=== PATIENT | female | born 1980 | race Caucasian/White ===

== ENCOUNTER 2024-11-11 13:39 | Inpatient (IN) | payer BC, OTHER ==
[2024-11-11] MEDS: Ondansetron 4 MG/2 ML SDV IVPUSH PRN (14:29)
[2024-11-11] MEDS ORDERED: Dexamethasone 4 MG/ML SDV ONE (17:04)
[2024-11-11] MEDS ORDERED: Propofol 200 MG/20 ML SDV ONE (17:04)
[2024-11-11] MEDS ORDERED: Succinylcholine 200 MG/10 ML MDV ONE (17:04)
[2024-11-11] MEDS ORDERED: fentaNYL 250 MCG/5 ML SDV ONE ×2 (17:04→17:43)
[2024-11-11] MEDS ORDERED: Ondansetron 4 MG/2 ML SDV ONE (17:04)
[2024-11-11] MEDS ORDERED: Glycopyrrolate 0.2 MG/ML 5 ML MDV ONE (17:04)
[2024-11-11] MEDS: Bupivacaine 0.5%/EPINEPHrine 1:200,000 50 ML MDV ONE (17:50)
[2024-11-11] MEDS ORDERED: Lactated Ringers 1,000 ML ONE (18:19)
[2024-11-12 05:51] LABS: BASOPHILS ABSOLUTE AUTO 0.03 K/uL (0.00-0.10); BASOPHILS PERCENT AUTO 0.3 % (0.1-1.3); EOSINOPHILS PERCENT AUTO 0.1 % (0.0-5.4); IMMATURE GRAN ABSOLUTE AUTO 0.03 K/uL (0.00-0.23); IMMATURE GRAN PERCENT AUTO 0.3 % (0.0-0.7); LYMPHOCYTES ABSOLUTE AUTO 1.14 K/uL (0.8-3.3); LYMPHOCYTES PERCENT AUTO 10.7 % (11.4-47.7); MONOCYTES ABSOLUTE AUTO 0.81 K/uL (0.20-0.90); MONOCYTES PERCENT AUTO 7.6 % (3.3-12.6); NEUTROPHILS ABSOLUTE AUTO 8.64 K/uL (1.0-7.6); NEUTROPHILS PERCENT AUTO 81.0 % (40.0-78.1); PLATELET COUNT,PLT 242 K/uL (130-375); RED BLOOD CELL COUNT 3.33 M/uL (3.77-5.24); WHITE BLOOD CELL COUNT,WBC 10.7 K/uL (3.2-11.0)
[2024-11-12 06:12] LABS: BLOOD UREA NITROGEN,BUN 17.0 mg/dL (7-18); CARBON DIOXIDE,CO2 23.0 mmol/L (21-32); CHLORIDE,CL 109.0 mmol/L (100-108); CREATININE 0.8 mg/dL (0.6-1.0); EST CRCL DRUG DOSING (CG) 79.07 mL/min; ESTIMATED GFR 92.0 mL/min (>60); GLUCOSE RANDOM 114.0 mg/dL (74-106); POTASSIUM,K 3.4 mmol/L (3.6-5.2); SODIUM,NA 141.0 mmol/L (140-148)
[2024-11-12 06:13] LABS: EOSINOPHILS ABSOLUTE AUTO 0.01 K/uL (0.00-0.40)
[2024-11-12] MEDS ORDERED: Heparin Sodium 5,000 Units/ML Vial SUBCUT SCH (07:00)
[2024-11-12] MEDS: Heparin Sodium 5,000 Units/ML Vial SUBCUT SCH (09:08)
[2024-11-12] MEDS: Potassium Chloride 20 MEQ Tab.ER PO ONE (10:17)
[2024-11-12] MEDS: Piperacillin/Tazobactam/Dext 4.5 GM in Premix Bag 1 BAG IV SCH (10:18)
[2024-11-12] MEDS ORDERED: Non-Formulary Medication 1 Each (Cholecalciferol (Vitamin D3) [Vitamin D3] 2,000 UNIT Cap) PO SCH (11:30)
[2024-11-12] MEDS ORDERED: Non-Formulary Medication 1 Each (Levothyroxine Sodium [Synthroid] 75 MCG Tablet) PO SCH (11:30)
[2024-11-12] MEDS: Cholecalciferol (Vitamin D3) 25 MCG Tab PO SCH (13:20)
[2024-11-13] MEDS: Benzocaine/Cetylpyridinium/Menthol Lozenge MUCMEM PRN (03:50)
[2024-11-13 06:00] LABS: BASOPHILS PERCENT AUTO 0.5 % (0.1-1.3); EOSINOPHILS ABSOLUTE AUTO 0.17 K/uL (0.00-0.40); EOSINOPHILS PERCENT AUTO 4.2 % (0.0-5.4); IMMATURE GRAN PERCENT AUTO 0.2 % (0.0-0.7); LYMPHOCYTES ABSOLUTE AUTO 1.12 K/uL (0.8-3.3); LYMPHOCYTES PERCENT AUTO 27.8 % (11.4-47.7); MONOCYTES ABSOLUTE AUTO 0.10 K/uL (0.20-0.90); MONOCYTES PERCENT AUTO 2.5 % (3.3-12.6); NEUTROPHILS ABSOLUTE AUTO 2.61 K/uL (1.0-7.6); NEUTROPHILS PERCENT AUTO 64.8 % (40.0-78.1); PLATELET COUNT,PLT 179 K/uL (130-375); RED BLOOD CELL COUNT 3.12 M/uL (3.77-5.24); WHITE BLOOD CELL COUNT,WBC 4.0 K/uL (3.2-11.0)
[2024-11-13 06:01] LABS: BASOPHILS ABSOLUTE AUTO 0.02 K/uL (0.00-0.10); IMMATURE GRAN ABSOLUTE AUTO 0.01 K/uL (0.00-0.23)
[2024-11-13 06:22] LABS: BLOOD UREA NITROGEN,BUN 10.0 mg/dL (7-18); CARBON DIOXIDE,CO2 27.0 mmol/L (21-32); CHLORIDE,CL 110.0 mmol/L (100-108); CREATININE 0.7 mg/dL (0.6-1.0); EST CRCL DRUG DOSING (CG) 90.36 mL/min; ESTIMATED GFR 108.0 mL/min (>60); GLUCOSE RANDOM 90.0 mg/dL (74-106); PHOSPHORUS 2.3 mg/dL (2.5-4.9); POTASSIUM,K 3.6 mmol/L (3.6-5.2); SODIUM,NA 142.0 mmol/L (140-148)
[2024-11-13] MEDS ORDERED: BUPROPION 300 MG PO SCH (09:00)
[2024-11-13] MEDS: Calcium Carbonate/Vitamin D3 1500 MG-400 Units Tab PO SCH (09:20)
[2024-11-13] MEDS ORDERED: Phosphorus #1 250 MG Tab PO ONE (12:04)
[2024-11-13] MEDS: Phosphorus #1 250 MG Tab PO ONE (12:50)
[2024-11-15 01:05] LABS: PARATHYROID HORMONE,INTACT 110 pg/mL (15-65)
== END 2024-11-13 16:30 | disposition home or self-care (01) | DRG 223 ==
LOC: JP.MS 13:53
PROVIDERS: ADMIT Surgery; ATTEND Surgery
PROC: 0DS80ZZ Reposition Small Intestine, Open Approach (ICD-10-PCS; principal; 2024-11-11 16:45)
DX: K56.1 Intussusception (principal); E83.51 Hypocalcemia; E83.42 Hypomagnesemia; Z79.899 Other long term (current) drug therapy
CPT/HCPCS: 00840-QZ; 36415; 80048; 82306; 82330; 83735; 83970; 84100; 85025; 99231; 99232; A9270-GY; J0330; J0612; J0690; J1100; J1171; J1596; J1644; J2405; J2543; J2550; J2704; J2710; J3010; J3490; J7030; J7120